=== PATIENT | male | born 1990 | race Caucasian/White ===

== ENCOUNTER 2017-11-26 08:20 | Emergency (ER) | payer MEDICAID ==
[~2017-11-26] VITALS: Ht 177.8 cm; Wt 74.8 kg
[~2017-11-26 08:20] MED LIST: ACET500; ALBIPROI INH; ALBU90OI; ALBU90OI INH; AMOX500 PO; ANXIETY MED; AZIT250 PO; BENZ100A PO; CEPH500 PO; CLIN150 PO; CLIN300 PO; CODGUAEL PO; CRUTCH2 USE; CRUTCH3 EXT; CRUTCH3 USE; CYCL10 PO; Cleocin HCl300 MG PO; DIPATR PO; ERYT333ERA PO; ERYT500 PO; FAMO20 PO; HYDACE5; HYDACE5 PO; HYDGUAL120 PO; IBUP400; IBUP600 PO; IBUP800 PO; IBUPROFEN; LOPE2C PO; MELO7.5 PO; NAPR500 PO; NAPR550 PO; OMEP20ER PO; OMEP40CA12 PO; ONDA4ODT MM; OXYACE5T PO; PENVK500; PRED20 PO; PROC10 PO; PROC5 PO; PROCODE120 PO; PROM25 PO; RANI150 PO; RXCLIN PO; RXCODACET PO; RXHYDGUAS PO; RXPROM25 PO; RXTRAM50 PO; SUCR1 PO; SULTRIDS PO; TRAM50 PO; TRIM250 PO; TYLENOL; Ultram50 MG PO; Ventolin/Prove6.7 GM INH; Zofran Odt4 MG SL
[2017-11-26] MEDS ORDERED: HYDCOR2.5C PR (08:58)
[2017-11-26] MEDS ORDERED: Miralax17 GM PO (08:59)
== END 2017-11-26 09:32 | disposition home or self-care (01) ==
LOC: ER 08:20
DX: K64.9 Unspecified hemorrhoids (principal); F17.210 Nicotine dependence, cigarettes, uncomplicated; Z88.0 Allergy status to penicillin; Z79.899 Other long term (current) drug therapy
CPT/HCPCS: 99283